=== PATIENT | female | born 1985 | race Hispanic/Latino ===

== ENCOUNTER 2017-02-16 09:23 | Day surgery (SDC) | payer OTHER ==
[2017-02-16 09:32] VITALS: BMI 22.3
[2017-02-16 09:52] VITALS: O2SAT 100
[2017-02-16 10:15] LABS: MEAN CORPUSCULAR HEMOGLOBIN 32.4 pg (27.0-31.0); MEAN CORPUSCULAR HGB CONC 34.5 g/dL (33.0-37.0); RED CELL DISTRIBUTION WIDTH 12.2 % (11.5-14.5); WHITE BLOOD COUNT 4.4 K/uL (4.8-10.8)
[2017-02-16] MEDS ORDERED: Lactated Ringer's 1,000 ML IV ONE ×2 (10:17→13:30)
[2017-02-16] MEDS ORDERED: Propofol 10 mg/ml Inj (20 ML) ONE (12:35)
[2017-02-16] MEDS ORDERED: Midazolam 2 MG/2 ML VIAL ONE (12:36)
[2017-02-16] MEDS ORDERED: Succinylcholine 200 mg/10 ml Inj IV ONE (12:36)
[2017-02-16] MEDS ORDERED: Rocuronium 10 mg/ml (5 ml) ONE (12:36)
[2017-02-16] MEDS ORDERED: ePHEDrine 50 mg/ml Inj ONE (12:36)
[2017-02-16] MEDS ORDERED: Lidocaine 4% (Laryng-O-Jet) Kit MM ONE (12:36)
[2017-02-16] MEDS ORDERED: Bupivacaine 0.5% Inj(30mL) ONE (13:02)
[2017-02-16] MEDS: HYDROmorphone 0.5 mg/0.5 ml ISec IVP PRN ×4 (14:55→15:25)
[2017-02-16] MEDS ORDERED: Sodium Chloride 0.9% 1,000 ML IV ONE (14:56)
[2017-02-16] MEDS ORDERED: Lactated Ringer's 1,000 ML IV SCH (15:00)
[2017-02-16] MEDS ORDERED: DiphenhydrAMINE 50 mg/ml Inj IVP PRN (15:21)
[2017-02-16] MEDS ORDERED: Oxycodone/Acetaminophen 5/325 mg Tab PO PRN (15:26)
[2017-02-16 15:29] VITALS: RESP 18
[2017-02-16 18:39] VITALS: BP 132/87; PULSE 97; TEMP 98.9
--- NOTE | 2017-03-16 17:21 | OP ---
PROCEDURE DATE: 02/16/2017 SURGEON: Isra Garcia MD EXTRACTOR FILLER: Harshad Rees MD PREOPERATIVE DIAGNOSIS: Pelvic pain, dysmenorrhea, dyspareunia, bladder pain, rule out endometriosis. POSTOPERATIVE DIAGNOSIS: Pelvic pain, dysmenorrhea, dyspareunia, bladder pain, rule out endometriosis.Pelvic endometriosis. PROCEDURE: Cystoscopy with bilateral ureteral catheterization and injection of IC-Green, diagnostic hysteroscopy, operative robotic laparoscopy, excision of endometriosis, bilateral ureterolysis. COMPLICATIONS: None. SPECIMENS: Multiple specimens of tissues suspicious for endometriosis sent to Pathology. INDICATION FOR THE PROCEDURE: The patient is a 31-year-old who presented with a history of dysmenorrhea and dyspareunia for long duration. She was counseled with regards to risks and benefits of the surgery and the probability of the surgery to identify the cause of her problem. She understood that. She signed the consent and was taken to the operating room. DESCRIPTION OF PROCEDURE: After adequate anesthesia was obtained, the patient was placed in the dorsal lithotomy position. She was prepped and draped. The surgeon gown and gloved. At this point, attention was in the vaginal area, where a cystoscope was inserted directly into the bladder. The bladder was visualized, both ureteral ostia appeared to be in a normal anatomical position. The left ureteral ostium was catheterized with a 10-Egyptian open-ended catheter which was inserted all the way up to the distal ureter and 5 mL of IC-Green was then injected. Then the catheter was removed and inserted into the right ureteral ostia, where again it was advanced all the way to the distal ureter and 5 mL of IC-Green was then injected. The catheter was then removed. At this point, the bladder was visualized, revealed to be free of tumor or lesions. At this point, the instrument was removed and a 16-Egyptian Harkins was inserted. Attention was within the vaginal area where a speculum was placed in the vagina. The anterior lip of the cervix was grasped. The cervix was visualized and dilated. A hysteroscope was inserted into the cervix and the uterine cavity was visualized revealing to be normal in size with a normal-appearing cavity. At this point, attention was on the abdomen, where after re-gowning and re-gloving, an open laparoscopy technique was made by making an incision right below the umbilicus and entering the abdominal cavity in a sharp and blunt fashion. At this point, the abdomen was insufflated and under direct visualization, additional ports were inserted in the right upper quadrant, left upper quadrant, left mid quadrant. The Da Gill robot was then docked and the procedure was begun. Findings were as follows: There were areas of erythematous and black-looking lesions on the left, right pelvic side wall on the posterior aspect of the cervix. Attention was first in the left pelvic side wall, where after identifying the ureter, utilizing fluorescent technology, the retroperitoneum was entered and the ureter was identified and dissected. Through a progressive lateralization of the uterus from the peritoneal leaf was excised all the way from the top all the way down all the way to the lower part of the pelvis by the ovarian fossa. An area of endometriosis was then excised without any complication. At this point, on the posterior aspect of the cervix, a black area with a hemorrhagic appearance suggestive of endometriosis was also excised, started at the top and excising all the way in the rectovaginal area. A full excision was then performed. At this point, attention was on the right hand side of the pelvis where the ureter again was identified utilizing fluorescent technology and the retroperitoneum was entered. The ureter was lateralized utilizing blunt force and pushing and lateralizing while keeping the erythematous peritoneum medial. A full excision was then performed obtaining a large area of peritoneum and it was sent to Pathology. At this point, it was checked for hemostasis and it appeared to be excellent. There was no damage to the colon or to any other surrounding organs. Both ovaries appeared to be normal. At this point, the pelvis was irrigated, the Da Gill robot was undocked, the pelvis was abundantly irrigated. The abdomen was desufflated; the instruments were removed. The incision was closed in layers utilizing PDS for the fascia and 4-0 Monocryl for the skin. Isra Garcia MD [facility]
== END 2017-02-16 18:40 | disposition home or self-care (01) ==
LOC: H.OPSURG 09:23
PROVIDERS: ATTEND Obstetrics & Gynecology Reproductive Endocrinology
DX: N80.0 Endometriosis of uterus (principal); R10.2 Pelvic and perineal pain; R39.89 Other symptoms and signs involving the genitourinary system; N94.10 Unspecified dyspareunia
CPT/HCPCS: 36415; 52005; 58662; 85027; 86850; 86900; 88305; C1729; J0330; J0690; J1170; J2001; J2250; J2704; J2765; J3010; J7030; J7040; J7120